=== PATIENT | male | born 1940 | race Two or more races ===

== ENCOUNTER → 2018-02-06 | Outpatient (CLI) | payer MEDICARE, OTHER ==
--- NOTE | 2018-02-06 09:08 | RAD ---
CT pelvis without intravenous contrast History: Small palpable lump just below left crest. Comparison: None. Technique: CT of the pelvis was performed without intravenous or oral contrast. A BB was placed over the area of interest in the left inguinal region. Exposure: One or more of the following individualized dose reduction techniques were utilized for this examination: 1. Automated exposure control 2. Adjustment of the mA and/or kV according to patient size 3. Use of iterative reconstruction technique Findings: Evaluation of solid organs is limited by lack of intravenous contrast. Evaluation of enteric structures may be limited by lack of oral contrast. Visualized abdominal and pelvic contents demonstrate mild amount of nonspecific stranding involving the root of the mesentery. No bowel obstruction or inflammation is seen. No free air or free fluid is identified in the abdomen or pelvis. Urinary bladder has unremarkable appearance given the level of distention. No retroperitoneal lymphadenopathy is appreciated. Irregular, multilobulated soft tissue appearing mass measures roughly 3.3 x 2.7 cm in axial dimension x 3.2 cm in craniocaudal dimension. This has Hounsfield units of about 45, similar in attenuation to adjacent musculature. No retroperitoneal lymphadenopathy is identified given limitation of lack of intravenous contrast. Impression: 1. Palpable lesion corresponds to soft tissue appearing mass measuring 2.3 x 2.7 x 3.2 cm. Given location, most likely etiology is enlarged left inguinal lymph node. Recommend clinical correlation regarding any history of malignancy (including lymphoma) versus infection in left inguinal region or left lower extremity. If it is thought unlikely that this is infectious or reactive in etiology, then biopsy would be recommended. 2. Nonspecific stranding of the root of the mesentery. Electronically signed by: Luis Fernando Dangelo MD (02/06/2018 9:04 AM) [place] [id number]
== END | disposition home or self-care (01) ==
LOC: CT 07:33
PROVIDERS: ATTEND Physician Assistant Medical
DX: R19.09 Other intra-abdominal and pelvic swelling, mass and lump (principal)
CPT/HCPCS: 72192

== ENCOUNTER → 2018-05-05 | Outpatient (CLI) | payer MEDICARE, OTHER ==
[~2018-05-05] MED LIST: IOHEXOL 300 MG/ML 75 ML VIAL. IV ONE
[2018-05-05 09:19] LABS: BASO # 0.1 x10^3/uL (0.0-0.2); BASO % 1 % (0-3); EOS # 0.2 x10^3/uL (0.0-0.7); EOS % 2 % (0-3); HEMATOCRIT 42.1 % (39.0-53.0); LYMPH # 1.4 x10^3/uL (1.0-4.8); LYMPH % 21 % (24-48); MEAN CORPUSCULAR HEMOGLOBIN 29 pg (25-35); MEAN CORPUSCULAR HGB CONC 33 g/dL (31-37); MEAN CORPUSCULAR VOLUME 86 fL (79-100); MONO # 0.6 x10^3/uL (0.0-1.1); MONO % 9 % (0-9); NEUT # 4.6 x10^3uL (1.8-7.7); NEUT % 67 % (31-73); PLATELET COUNT 331 x10^3/uL (140-400); RED BLOOD COUNT 4.89 x10^6/uL (4.30-5.70); RED CELL DISTRIBUTION WIDTH 13.7 % (11.5-14.5); WHITE BLOOD COUNT 6.8 x10^3/uL (4.0-11.0)
[2018-05-05 09:28] LABS: CALCIUM 8.8 mg/dL (8.5-10.1); CREATININE 1.1 mg/dL (0.7-1.3); GFR 64.9; POTASSIUM 5.1 mmol/L (3.5-5.1)
--- NOTE | 2018-05-05 12:31 | RAD ---
EXAM: CT Abdomen and Pelvis with IV contrast CLINICAL HISTORY: LEFT INGUINAL SWELLING, IV CONTRAST ONLY PER ORDER. 75MLS OMNI 300 IV CONTRAST. COMPARISON: CT pelvis 02/06/2018 TECHNIQUE: Helical CT of the abdomen and pelvis was performed following the administration of intravenous contrast. Axial, coronal and sagittal reformatted images were generated. PQRS compliance statement - One or more of the following individualized dose reduction techniques were utilized for this study: 1. Automated exposure control 2. Adjustment of the mA and/or kV according to patient size 3. Use of iterative reconstruction technique FINDINGS: Lower chest: Minimal reticular subpleural opacities likely atelectasis. Abdomen and Pelvis: No focal liver lesion. Gallbladder is normal. No biliary ductal dilatation. Spleen is unremarkable. Adrenal glands are normal. Pancreas is unremarkable. Symmetric nephrograms. No focal renal lesion. No hydronephrosis. Small and large bowel are normal in caliber. Appendix is normal. Moderate stool content is seen within the ascending and transverse colon. No evidence for bowel obstruction. No abdominal or pelvic ascites. No abdominal lymphadenopathy, although a few minimally prominent periaortic lymph nodes are seen. In the left inguinal region, at the site of previously seen inguinal mass, there is a peripherally enhancing fluid collection measuring 4.2 x 1.9 cm. This extends to the skin surface suggesting drainage. Please correlate for possible interval biopsy or resection and consider superimposed infection. Seroma may also have similar appearance. Several prominent left inguinal lymph nodes are seen although not enlarged by size criteria. These are likely reactive. Small fat-containing periumbilical hernia is seen. There is moderate fatty atrophy of the paraspinal muscles within the upper back. Bones: Degenerative changes of the spine are seen. IMPRESSION: 1. Loculated collection in the left inguinal region measuring 4.2 x 1.9 cm. This is in the site of previously seen left inguinal mass/lymph node. Seroma or abscess are suspected. This extends to the skin surface. 2. Mildly prominent associated inguinal lymph nodes, likely reactive. 3. Fatty atrophy of the paraspinal muscles Electronically signed by: Benito Miller MD (05/05/2018 12:28 PM) [id number]
== END | disposition home or self-care (01) ==
LOC: CT 08:42
PROVIDERS: ATTEND Surgery
DX: K42.9 Umbilical hernia without obstruction or gangrene (principal); G12.8 Other spinal muscular atrophies and related syndromes; M47.896 Other spondylosis, lumbar region
CPT/HCPCS: 36415; 74177; 80048; 85025; Q9967